=== PATIENT | female | born 1985 | race African-American/Black ===

== ENCOUNTER 2017-08-10 07:30 | Inpatient (IN) | payer MEDICAID ==
[~2017-08-10] VITALS: Ht 160 cm; Wt 83.9 kg
[2017-08-10] MEDS ORDERED: LACTATED RINGERS 1,000 ML IV SCH ×2 (07:52→08:15)
[2017-08-10] MEDS ORDERED: DEXT 5%/LR + PITOCIN 20UNITS/L 1,000 ML IV ONE (07:58)
[2017-08-10] MEDS: DEXT 5%/LR + PITOCIN 20UNITS/L 1,000 ML IV SCH ×2 (07:58→09:14)
[2017-08-10] MEDS ORDERED: METHYLERGONOVINE MALEATE 0.2 MG/ML IM PRN (08:00)
[2017-08-10 08:29] LABS: BASOPHILS % 0.3 % (0.0-2.0); HEMATOCRIT. 42.1 % (36.0-48.0); HEMOGLOBIN. 14.1 g/dL (12.0-16.0); LYMPHOCYTES % 8.1 % (20.0-50.0); MEAN CORPUSCULAR HEMOGLOBIN 33.1 pg (28.0-32.0); MEAN CORPUSCULAR VOLUME 99.2 fL (81.0-99.0); MEAN PLATELET VOLUME 12.1 fl (7.4-10.4); MONOCYTES % 4.7 % (2.0-8.0); NEUTROPHILS % 86.9 % (40.0-76.0); PLATELET 194 x1000/uL (130-400); RED BLOOD CELL COUNT 4.25 mill/uL (4.2-5.4); RED CELL DISTRIBUTION WIDTH 14.2 % (11.6-14.6)
[2017-08-10 08:38] LABS: INR 0.9; PARTIAL THROMBOPLASTIN TIME 27.5 sec (23.4-31.0); PROTHROMBIN TIME 9.4 sec (9.4-11.6)
[2017-08-10 08:43] LABS: CLARITY URINE CLEAR (CLEAR); COLOR URINE YELLOW (YELLOW); KETONES URINE 1+ (NEGATIVE); LEUKOCYTE ESTERASE URINE NEGATIVE (NEGATIVE); NITRITE URINE NEGATIVE (NEGATIVE); OCCULT BLOOD URINE 2+ (NEGATIVE); PROTEIN URINE 1+ (NEGATIVE); SPECIFIC GRAVITY URINE 1.026 (1.005-1.030)
[2017-08-10 08:54] LABS: *AMPHETAMINES SCREEN URINE NEGATIVE (NEGATIVE); *BARBITURATES SCREEN URINE NEGATIVE (NEGATIVE); *BENZODIAZEPINES SCREEN URINE NEGATIVE (NEGATIVE); *COCAINE SCREEN URINE NEGATIVE (NEGATIVE); METHADONE URINE SCREEN NEGATIVE (NEGATIVE); OPIATES URINE SCREEN NEGATIVE (NEGATIVE); PHENCYCLIDINE URINE SCREEN NEGATIVE (NEGATIVE)
[2017-08-10 08:57] LABS: CANNABINOID URINE SCREEN PRESUMTIVE POSITIVE (NEGATIVE)
[2017-08-10] MEDS ORDERED: BENZOCAINE/LANOLIN/ALOE VERA SPRAY TOP PRN (09:15)
[2017-08-10] MEDS ORDERED: IBUPROFEN 400MG TABLET PO PRN (09:15)
[2017-08-10] MEDS ORDERED: RHO(D) IMMUNE GLOBULIN 300 MCG/SYR IM PRN (09:15)
[2017-08-10] MEDS ORDERED: DEXT 5%/LR + PITOCIN 20UNITS/L 1,000 ML IV SCH (09:15)
[2017-08-10] MEDS ORDERED: IBUPROFEN 800MG TABLET PO PRN (09:15)
[2017-08-10 10:15] VITALS: BP 115/56
[2017-08-10 10:45] VITALS: BP 118/57
[2017-08-10 10:53] LABS: HEPATITIS B SURFACE ANTIGEN NEGATIVE
[2017-08-10 23:25] VITALS: BP 132/67
[2017-08-11 07:11] LABS: BASOPHILS % 0.9 % (0.0-2.0); EOSINOPHILS % 0.1 % (0.0-5.0); HEMATOCRIT. 29.4 % (36.0-48.0); LYMPHOCYTES % 23.2 % (20.0-50.0); MEAN CORPUSCULAR VOLUME 99.9 fL (81.0-99.0); MONOCYTES % 6.5 % (2.0-8.0); NEUTROPHILS % 69.3 % (40.0-76.0); PLATELET 133 x1000/uL (130-400); RED BLOOD CELL COUNT 2.95 mill/uL (4.2-5.4)
[2017-08-11 08:30] VITALS: BP 98/59
[2017-08-11 14:53] VITALS: BP 113/62
[2017-08-11 19:05] VITALS: BP 113/65
[2017-08-11] MEDS ORDERED: TETANUS, DIPHTHERIA, PERTUSSIS VAC/PF 0.5ML (>7YR OLD) IM ONE (22:00)
[2017-08-12 00:15] VITALS: BP 106/57
[2017-08-12 08:16] VITALS: BP 114/75
== END 2017-08-12 16:00 | disposition home or self-care (01) | DRG 561 ==
LOC: L&D 07:30 → 7EST PP/OB 10:00
PROVIDERS: ADMIT Obstetrics & Gynecology; ATTEND Obstetrics & Gynecology
DX: Z39.0 Encounter for care and examination of mother immediately after delivery (principal)
CPT/HCPCS: 36415; 80305; 80349; 81001; 85025; 85610; 85730; 86592; 86703; 86762; 86850; 86900; 87340; 90715; 99281; J2590; J7120